=== PATIENT | female | born 1990 ===

== ENCOUNTER 2018-05-28 18:22 | Emergency (ER) | payer SELFPAY ==
[2018-05-28 18:43] VITALS: BP 127/81; PULSE 77; RESP 20; TEMP 98.2; O2SAT 100
[2018-05-28 18:58] LABS: SQUAMOUS EPITHIAL 2 /hpf (0-5); URINE BACTERIA RARE (<OCC); URINE BILIRUBIN NEGATIVE (NEGATIVE); URINE BLOOD 3+ (NEGATIVE); URINE CLARITY Hazy (Clear); URINE COLOR Yellow (YELLOW); URINE GLUCOSE (UA) NORMAL (Normal); URINE LEUKOCYTE ESTERASE 3+ Leu/uL (Negative); URINE PROTEIN 2+ mg/dL (NEGATIVE); URINE UROBILINOGEN NORMAL mg/dL (0.2-1.0)
[2018-05-28 19:02] LABS: HCG,QUALITATIVE URINE NEGATIVE (NEGATIVE)
--- NOTE | 2018-05-28 19:38 | C.PDOC ---
History Of Present Illness 28 y/o female presents to the ER complaining of dysuria and frequency which has been present for the past 2 days. Patient states that she has history of UTI. Patient denies having fever, chills, nausea, vomiting, abdominal, and . Time Seen by Provider: 05/28/18 18:33 Chief Complaint (Nursing): Female Genitourinary History Per: Patient History/Exam Limitations: no limitations Onset/Duration Of Symptoms: Days Current Symptoms Are (Timing): Still Present Severity: Moderate Past Medical History Reviewed: Historical Data, Nursing Documentation, Vital Signs Vital Signs: Last Vital Signs Temp 98.2 F 05/28/18 18:24 Pulse 77 05/28/18 18:24 Resp 20 05/28/18 18:24 BP 127/81 05/28/18 18:24 Pulse Ox 100 05/28/18 18:24 - Medical History PMH: No Chronic Diseases Other Surgeries: Hx of surgeries - [facility] INJECT/INFUSE NEC (06/05/06) Family History: States: No Known Family Hx - Social History Hx Alcohol Use: Yes Hx Substance Use: No - Immunization History Hx Tetanus Toxoid Vaccination: No Hx Influenza Vaccination: No Hx Pneumococcal Vaccination: No Review Of Systems Except As Marked, All Systems Reviewed And Found Negative. Constitutional: Negative for: Fever, Chills Gastrointestinal: Negative for: Nausea, Vomiting, Abdominal Pain Genitourinary: Positive for: Dysuria, Frequency. Negative for: Hematuria Physical Exam - Physical Exam Appears: Non-toxic Skin: Normal Color, Warm, Dry Head: Atraumatic, Normacephalic Eye(s): bilateral: Normal Inspection Nose: Normal Oral Mucosa: Moist Neck: Supple Chest: Symmetrical Cardiovascular: Rhythm Regular Respiratory: Normal Breath Sounds, No Rales, No Rhonchi, No Wheezing Gastrointestinal/Abdominal: Normal Exam, Soft, No Tenderness, No Guarding, No Rebound Neurological/Psych: Oriented x3, Normal Speech ED Course And Treatment - Laboratory Results Lab Results: Urine Color Yellow (YELLOW) 05/28/18 18:49 Urine Clarity Hazy (Clear) 05/28/18 18:49 Urine pH 7.0 (5.0-8.0) 05/28/18 18:49 Ur Specific [place] 1.016 (1.003-1.030) 05/28/18 18:49 Urine Protein 2+ mg/dL (NEGATIVE) H 05/28/18 18:49 Urine Glucose (UA) Normal mg/dL (Normal) 05/28/18 18:49 Urine Ketones Negative mg/dL (NEGATIVE) 05/28/18 18:49 Urine Blood 3+ (NEGATIVE) H 05/28/18 18:49 Urine Nitrate Negative (NEGATIVE) 05/28/18 18:49 Urine Bilirubin Negative (NEGATIVE) 05/28/18 18:49 Urine Urobilinogen Normal mg/dL (0.2-1.0) 05/28/18 18:49 Ur Leukocyte Esterase 3+ Jackie/uL (Negative) H 05/28/18 18:49 Urine WBC (Auto) 259 /hpf (0-5) H 05/28/18 18:49 Urine RBC (Auto) 278 /hpf (0-3) H 05/28/18 18:49 Ur Squamous Epith Cells 2 /hpf (0-5) 05/28/18 18:49 Urine Bacteria Rare (<OCC) 05/28/18 18:49 Urine HCG, Qual Negative (NEGATIVE) 05/28/18 18:49 Urine HCG, Qual Negative (NEGATIVE) 05/28/18 18:49 Lab Interpretation: Abnormal (UA 259 WBC's) Urine POC: Negative O2 Sat by Pulse Oximetry: 100 (RA) Pulse Ox Interpretation: Normal Progress Note: Patient treated with Macrobid PO and Pyridium PO. HCG, Qual. and UA ordered. Medical Decision Making Medical Decision Making: UTI, no prior micro Disposition Doctor Will See Patient In The: Office Counseled Patient/Family Regarding: Studies Performed, Diagnosis - Disposition Referrals: [facility] [Outside] [facility] [Outside] [facility] [Outside] [facility] [Outside] Disposition: HOME/ ROUTINE Disposition Time: 19:38 Condition: GOOD Additional Instructions: Macrobid 100 mg (antibiotic) 1 tab twice a day for 5 days total Pyridium 100 mg (for bladder pain) 1-2 tabs every 6 hours as needed Prescriptions: Nitrofurantoin Macrocrystals [Macrobid] 1 cap PO BID #9 cap Phenazopyridine HCl [Pyridium] 100 mg PO TID PRN #6 tablet PRN Reason: dysuria Instructions: Urinary Tract Infection, Adult (DC), Dysuria, Adult (DC) Forms: [facility] ([place]) - Clinical Impression Clinical Impression: Dysuria - Scribe Statement The provider has reviewed the documentation as recorded by the Scribe Reji Salas Provider Attestation: All medical record entries made by the Scribe were at my direction and personally dictated by me. I have reviewed the chart and agree that the record accurately reflects my personal performance of the history, physical exam, medical decision making, and the department course for this patient. I have also personally directed, reviewed, and agree with the discharge instructions and disposition.
== END 2018-05-28 19:53 | disposition home or self-care (01) ==
LOC: C.ER 18:22
DX: R30.0 Dysuria (principal); Z87.440 Personal history of urinary (tract) infections